=== PATIENT | female | born 1940 | race Caucasian/White ===

== ENCOUNTER 2018-01-02 13:25 | Emergency (ER) | payer MEDICARE ==
[2018-01-02] MEDS ORDERED: 0.9 % SODIUM CHLORIDE 1,000 ML BAG IV ONE (13:38)
--- NOTE | 2018-01-02 13:41 | Emergency Department Record ---
History of Present Illness - General Chief Complaint: Abdominal Pain Stated Complaint: LOWER RT ABDOMINAL PAIN Time Seen by Provider: 01/02/18 13:37 Source: Patient Mode of Arrival: Ambulatory Limitations: No limitations - History of Present Illness Initial Comments: 77 yo female presents with abdominal pain. The pain is located in the right lower abdomen. It has been ongoing for one day. It gradually has increased. No fevers or chills. She feels tired with mild decrease in the appetite. No nausea, vomiting, diarrhea or dysuria. She did fall off a stool three weeks ago but she feels mostly improved. No rash. No abdominal surgery history. PCP is Dr Swanson. Her doctor did note hematuria a few weeks ago on the office urinalysis. MD Complaint: Abdominal pain Onset/Timin -: Days(s) (1) Location: Other Radiation: RLQ Migration to: No migration Severity: Mild Consistency: Constant Improves With: Nothing Worsens With: Nothing Associated Symptoms: Denies other symptoms - Related Data Allergies Allergy/AdvReac Type Severity Reaction Status Date / Time No Known Drug Intolerances Allergy Unknown no known Verified 01/02/18 13:39 allergies Travel Screening - Travel/Exposure Within Last 30 Days Have you traveled within the last 30 days?: No Review of Systems Constitutional: Reports: Malaise. Denies: Chills, Fever Eyes: Denies: Eye discharge ENT: Denies: Congestion, Throat pain Respiratory: Denies: Cough, Dyspnea Cardiovascular: Denies: Chest pain, Syncope Endocrine: Denies: Fatigue, Polydipsia, Polyuria Gastrointestinal: Reports: As per HPI, Abdominal pain. Denies: Constipation, Diarrhea, Hematemesis, Hematochezia, Nausea, Vomiting Genitourinary: Denies: Dysuria, Urgency Musculoskeletal: Denies: Arthralgia, Back pain, Joint swelling, Myalgia Skin: Denies: Bruising, Change in color, Rash Neurological: Denies: Headache, Numbness, Weakness Psychiatric: Denies: Anxiety Hematological/Lymphatic: Denies: Easy bleeding, Easy bruising, Swollen glands Physical Exam - General General Appearance: Alert, Oriented x3, Cooperative, No acute distress Limitations: No limitations - Head Head exam: Atraumatic, Normal inspection - Eye Eye exam: Normal appearance. negative: Conjunctival injection, Scleral icterus - ENT ENT exam: Normal exam, Mucous membranes moist Ear exam: Normal external inspection Nasal Exam: Normal inspection Mouth exam: Normal external inspection Teeth exam: Normal inspection - Neck Neck exam: Normal inspection, Full ROM. negative: Tenderness - Respiratory Respiratory exam: Normal lung sounds bilaterally. negative: Respiratory distress - Cardiovascular Cardiovascular Exam: Regular rate, Normal rhythm, Normal heart sounds - GI/Abdominal GI/Abdominal exam: Soft, Tenderness (mild tenderness in the RLQ, very soft abdomen. No rebound or guarding.). negative: Distended, Guarding, Rebound, Rigid - Rectal Rectal exam: Deferred - exam: Deferred - Extremities Extremities exam: Normal inspection, Full ROM, Normal capillary refill. negative: Tenderness - Back Back exam: Denies: CVA tenderness (R), CVA tenderness (L) - Neurological Neurological exam: Alert, Oriented X3 - Psychiatric Psychiatric exam: Normal affect, Normal mood - Skin Skin exam: Dry, Intact, Normal color, Warm Course Vital Signs 01/02/18 13:32 Temperature 97.5 F L Pulse Rate 70 Respiratory 20 Rate Blood Pressure 146/74 Pulse Ox 97 - Reevaluation(s) Reevaluation #1: 01/02/18 14:49 The CBC was normal The GFR is 46 and CR above her baseline at 1.2 CT made oral only. No IV. 01/02/18 14:50 Few RBC's noted in the Urine. No infection 01/02/18 15:[address] scan was reviewed. No bladder or ureteral stone. Mild HN and HU without any stone visible. She has an 8mm intra renal stone. Recommend follow up ureterography. Appendix is normal. 01/02/18 16:27 Appointment was made at 4pm tomorrow for with Dr Bailon in the urology specialty clinic Medical Decision Making - Lab Data Result diagrams: 01/02/18 13:47 01/02/18 13:47 Disposition Disposition: Discharge Clinical Impression: Right flank discomfort Hematuria Qualifiers: Hematuria type: unspecified type Qualified Code(s): R31.9 - Hematuria, unspecified Disposition: Home, Self-Care Condition: (1) Good Instructions: Hematuria (ED), Abdominal Pain (ED) Additional Instructions: Call your family doctor. Call to schedule the next available appointment for a recheck. Return to ED if your symptoms worsen or if you have any new concerns, fever, vomiting or new concerns Review the final Emergency Record and test results with your doctor on follow up You have been referred to the [facility] for the stone in your kidney You have an appointment at 4pm with Dr Bailon Referrals: NAI BAILON M.D. [MEDICAL DOCTOR] - [facility] [place] [facility] [Provider Group] Forms: Patient Portal Access Quality - Quality Measures Quality Measures: N/A - Blood Pressure Screening Does Patient Have Any of the Following: No Blood Pressure Classification: Normal BP Reading Systolic Measurement: 119 Diastolic Measurement: 57 Screening for High Blood Pressure: < Normal BP, F/U Not Required > [G8783]
[2018-01-02 14:00] LABS: URINE APPEARANCE CLEAR; URINE BILIRUBIN NEGATIVE (NEGATIVE); URINE BLOOD LARGE (NEGATIVE); URINE COLOR YELLOW; URINE GLUCOSE (UA) NEGATIVE (NEGATIVE); URINE KETONE NEGATIVE (NEGATIVE); URINE LEUKOCYTE ESTERASE TRACE (NEGATIVE); URINE NITRITE NEGATIVE (NEGATIVE); URINE PROTEIN NEGATIVE (NEGATIVE); URINE UROBILINOGEN 0.2 E.U./dL (0.20 - 1.00)
[2018-01-02 14:02] LABS: BASO % 0.3 % (0-6); EOS % 1.4 % (0-6); GRAN % 73.9 % (47-80); HEMATOCRIT 34.7 % (35.0-47.0); HEMOGLOBIN 10.9 gm/dl (11.6-16.0); LYMPH % 15.9 % (16-45); MEAN CELL VOLUME 92.3 fl (81-97); MEAN CORPUSCULAR HEMOGLOBIN 28.9 pg (27-33); MEAN CORPUSCULAR HGB CONC 31.4 g/dl (32-36); MEAN PLATELET VOLUME 8.6 fl (7.4-10.4); MONO % 8.5 % (0-9); PLATELET COUNT 286 K/uL (130-400); RED BLOOD COUNT 3.76 M/uL (3.80-5.40); RED CELL DISTRIBUTION WIDTH 12.9 % (11.5-14.5); WHITE BLOOD COUNT W/O DIFF 6.6 K/uL (4.2-12.2)
[2018-01-02 14:12] LABS: URINE BACTERIA FEW; URINE RBC 16 - 25 (NONE SEEN); URINE WBC 0 - 2 (0-2/hpf)
[2018-01-02 14:13] LABS: URINE MUCUS LIGHT
[2018-01-02 14:14] LABS: BILIRUBIN,TOTAL 0.9 mg/dL (0.2-1.0); CREATININE 1.2 mg/dL (0.5-0.9)
[2018-01-02 14:15] LABS: TOTAL PROTEIN 6.5 g/dL (6.6-8.7)
[2018-01-02 14:20] LABS: ALB/GLOB RATIO 1.8 (1.1-1.8); ALBUMIN 4.2 g/dL (4.0-5.0)
[2018-01-02] MEDS ORDERED: ACETAMINOPHEN 500 MG TABLET PO ONE (16:30)
--- NOTE | 2018-01-03 07:59 | CT SCAN REPORT ---
EXAM: EMERGENCY CT OF THE ABDOMEN AND PELVIS WITHOUT CONTRAST HISTORY: RIGHT LOWER QUADRANT PAIN. TECHNIQUE: Axial CT scan of the abdomen and pelvis was performed with oral contrast, but without IV contrast at the referring physician's request. Comparison: No prior CT abdomen or pelvis. FINDINGS: No calcified gallstones are seen within the gallbladder. There is some malrotation in the right kidney with its long axis in a somewhat oblique AP direction rather than the more typical craniocaudal direction. There does appear to be some mild hydronephrosis of the right kidney and there is a calculus approximately 8 mm in size within the anteromedial aspect of the left kidney, but this appears to be within the intrarenal collecting system rather than in the UPJ itself and so do not appear to be causing obstruction currently. Compared to the left side the right ureter does appear mildly dilated, but no definite ureteral calculus seen on either side and no bladder calculus evident. Evaluation of the viscera is very limited without IV contrast. Given this limitation, no definite hepatic, splenic, adrenal, pancreatic, or renal mass identified. Mild diverticulosis in the sigmoid colon, but no diverticulitis evident. There is a very redundant colon. Thick walled appearance of portions of the colon is nonspecific although presumably just due to incomplete distention. No appendicitis identified. No free intraperitoneal air or free intraperitoneal fluid identified. Spurring in the spine. IMPRESSION: 1. 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 HYDRONEPHROSIS IN THE RIGHT KIDNEY WITH AN APPROXIMATELY 8 MM CALCULUS IN THE LOWER POLE. MILD HYDROURETER WELL ON THE RIGHT, BUT NO ACTUAL URETERAL CALCULUS SEEN ON THE RIGHT AND NO BLADDER CALCULUS EVIDENT. IF SYMPTOMS PERSIST , A FOLLOW-UP CT UROGRAPHY WOULD BE SUGGESTED FOR FURTHER EVALUATION. 2. CARDIOMEGALY. 3. NO APPENDICITIS EVIDENT. NO FREE AIR OR FREE FLUID EVIDENT. 4. MILD DIVERTICULOSIS SIGMOID COLON, BUT NO DIVERTICULITIS EVIDENT. JOB NUMBER: [id number] [facility]
== END 2018-01-02 16:44 | disposition home or self-care (01) ==
LOC: ER 13:25
DX: N20.0 Calculus of kidney (principal); R10.31 Right lower quadrant pain; R53.83 Other fatigue; R35.0 Frequency of micturition; R31.29 Other microscopic hematuria
CPT/HCPCS: 74176; 80053; 81001; 83690; 85025; 96360; 96361; 99284; J7030

== ENCOUNTER 2018-01-17 10:38 | Emergency (ER) | payer MEDICARE ==
[2018-01-17] MEDS ORDERED: 0.9 % SODIUM CHLORIDE 1000ML 1,000 ML IV PRN (11:04)
[2018-01-17] MEDS ORDERED: MAGNESIUM SULFATE 16 MEQ in 0.9 % SODIUM CHLORIDE 100ML 100 ML IV ONE (11:04)
--- NOTE | 2018-01-17 11:13 | Emergency Department Record ---
History of Present Illness - General Chief complaint: Fatigue and Weakness Stated complaint: in a daze, weakness Time Seen by Provider: 01/17/18 11:03 Source: Patient, Family () Mode of Arrival: Ambulatory Limitations: No limitations - History of Present Illness Initial comments: Pt relates waking this AM and not feeling herself. "I was in a fog". No CP or NENITA, no ROWE or focal weakness. No recent illness, fever, nausea, vomiting. No hx DM. No change in speech or motor. states ove rthe past two weeks she has not had energy. Recent dx with large right side renal stone and need lithotripsy. No pain from staone at present. In ED feeling "some better". Hx of Afib on meds and anticoagualtion and baby asprin. MD Complaint: Lack of energy Onset/Timin -: Days(s) Severity: Mild, Moderate Severity scale (1-10): 1 Quality: Aching Consistency: Constant Improves with: None Worsens with: None - [place] Coma Scale Eye Response: (4) Open spontaneously Motor Response: (6) Obeys commands Verbal Response: (5) Oriented [place] Total: 15 - Related Data Allergies Allergy/AdvReac Type Severity Reaction Status Date / Time No Known Drug Intolerances Allergy Unknown no known Verified 01/17/18 10:51 allergies Travel Screening - Travel/Exposure Within Last 30 Days Have you traveled within the last 30 days?: No - Travel/Exposure Within Last Year Have you traveled outside the [place] in the last year?: No - Additonal Travel Details Have you been exposed to anyone with a communicable illness?: No - Travel Symptoms Symptom Screening: None Review of Systems Constitutional: Reports: Malaise. Denies: Chills, Fever, Night sweats Eyes: Denies: Photophobia, Vision change ENT: Denies: Congestion Respiratory: Denies: Cough, Dyspnea, Wheezes Cardiovascular: Denies: Chest pain, Dyspnea on exertion, Palpitations, Syncope Endocrine: Reports: Fatigue Gastrointestinal: Denies: Abdominal pain, Constipation, Nausea, Vomiting Musculoskeletal: Denies: Arthralgia, Back pain Skin: Denies: Bruising, Change in color Neurological: Reports: Weakness. Denies: Abnormal gait, Headache, Numbness, Tingling, Tremors Psychiatric: Denies: Anxiety, Auditory hallucinations, Depression Hematological/Lymphatic: Denies: Anemia Past Medical History - SOCIAL HISTORY Smoking Status: Never smoker Alcohol Use: None Drug Use: None - RESPIRATORY Hx Respiratory Disorders: No - CARDIOVASCULAR Hx Cardio Disorders: Yes Hx Hypertension: Yes Hx Irregular Heartbeat: Yes (A-fib) Comment:: high cholesterol - NEURO Hx Neuro Disorders: Yes Hx CVA: Yes - GI Hx GI Disorders: No - Hx Genitourinary Disorders: No - ENDOCRINE Hx Endocrine Disorders: Yes Hx Thyroid Disease: Yes - MUSCULOSKELETAL Hx Musculoskeletal Disorders: No - PSYCH Hx Psych Problems: No - HEMATOLOGY/ONCOLOGY Hx Hematology/Oncology Disorders: No Family Medical History Any Significant Family History?: Yes Physical Exam - General General Appearance: Alert, Oriented x3, Cooperative, No acute distress - Head Head exam: Atraumatic - Eye Eye exam: Normal appearance, PERRL, EOMI - ENT ENT exam: Mucous membranes moist, Normal external ear exam, Normal orophraynx, TM's normal bilaterally - Neck Neck exam: Normal inspection, Full ROM. negative: Lymphadenopathy, Tenderness, Thyromegaly - Respiratory Respiratory exam: Normal lung sounds bilaterally. negative: Rhonchi, Wheezes - Cardiovascular Cardiovascular Exam: Regular rate, Normal rhythm, Normal heart sounds (frequest PVCs on monitor. ) Peripheral Pulses: 2+: Radial (R), Radial (L) - GI/Abdominal GI/Abdominal exam: Soft, Normal bowel sounds. negative: Guarding, Hypoactive bowel sounds, Tenderness - exam: Deferred - Extremities Extremities exam: Full ROM, Normal capillary refill. negative: Calf tenderness , Joint swelling - Back Back exam: Reports: Normal inspection. Denies: CVA tenderness (R), CVA tenderness (L), Paraspinal tenderness - Neurological Neurological exam: Alert, CN II-XII intact, Normal gait, Oriented X3. negative : Motor sensory deficit - Psychiatric Psychiatric exam: Normal affect, Normal mood. negative: Flat affect - Skin Skin exam: Normal color. negative: Rash Course Vital Signs 01/17/18 10:43 Temperature 98.2 F Pulse Rate 62 Respiratory 18 Rate Blood Pressure 164/77 Pulse Ox 97 - Reevaluation(s) Reevaluation #1: 01/17/18 13:41 Pt resting comfortable. CTA chest without PE. Noted lesion in liver and pancrease. Discussed with PMD Dr. Swanson by phone. He is aware of symptoms today and results of testing. Will follow in office for outpatient eval of liver and panc. Pt given lunch and then will walk in ED to see how she is feeling. Interval Trop at 2PM. Await results Reevaluation #2: 01/17/18 14:31 Repeat trop neg. Ate lunch and up walking in ED. Feeling better. Follow up with Dr. Swanson as discussed. Return as needed. Procedures - EKG Initial Date: 01/17/18 Time: 11:18 EKG: Abnormal EKG EKG Detail: SR 60, RBBB Medical Decision Making - Lab Data Result diagrams: 01/17/18 11:10 01/17/18 11:10 Disposition Disposition: Discharge Clinical Impression: Weakness Disposition: Home, Self-Care Condition: (2) Stable Instructions: Fatigue (ED) Additional Instructions: Rest, continue meds, follow up with Dr. Swanson in the office 2-3 days. Forms: Patient Portal Access Time of Disposition: 14:38 Quality - Quality Measures Quality Measures: N/A - Blood Pressure Screening Does Patient Have Any of the Following: No Blood Pressure Classification: Pre-Hypertensive BP Reading Systolic Measurement: 120 Diastolic Measurement: 59 Screening for High Blood Pressure: < Pre-Hypertensive BP, F/U Documented > [ G8950] Pre-Hypertensive Follow-up Interventions: Follow-up with rescreen every year.
[2018-01-17 11:14] LABS: BASO % 0.4 % (0-6); EOS % 3.1 % (0-6); GRAN % 66.5 % (47-80); HEMATOCRIT 35.8 % (35.0-47.0); HEMOGLOBIN 11.4 gm/dl (11.6-16.0); LYMPH % 20.6 % (16-45); MEAN CELL VOLUME 91.8 fl (81-97); MEAN CORPUSCULAR HEMOGLOBIN 29.2 pg (27-33); MEAN CORPUSCULAR HGB CONC 31.8 g/dl (32-36); MEAN PLATELET VOLUME 8.7 fl (7.4-10.4); MONO % 9.4 % (0-9); PLATELET COUNT 247 K/uL (130-400); RED CELL DISTRIBUTION WIDTH 12.6 % (11.5-14.5); WHITE BLOOD COUNT W/O DIFF 4.8 K/uL (4.2-12.2)
[2018-01-17 11:25] LABS: BLOOD UREA NITROGEN 25 mg/dL (8-23); CREATININE 0.8 mg/dL (0.5-0.9); EST GLOMERULAR FILTRATION RATE > 60 mL/min
[2018-01-17 11:26] LABS: TOTAL PROTEIN 6.6 g/dL (6.6-8.7)
[2018-01-17 11:28] LABS: GLUCOSE,RANDOM 112 mg/dL (74-109)
[2018-01-17 11:31] LABS: ALB/GLOB RATIO 1.9 (1.1-1.8); ALBUMIN 4.3 g/dL (4.0-5.0); ALKALINE PHOSPHATASE 53 U/L (35-104); ALT/SGPT 11 U/L (<33); AST/SGOT 19 U/L (10.0-35.0)
[2018-01-17 11:42] LABS: THYROID STIMULATING HORMONE 1.38 uIU/mL (0.270-4.20)
--- NOTE | 2018-01-18 10:54 | CT ANGIOGRAM REPORT ---
EXAM: CTA OF THE CHEST WITH CONTRAST HISTORY: DIFFICULTY IN BREATHING. TECHNIQUE: CTA of the chest was performed after intravenous administration of 80 ml of Omnipaque 350 contrast material. Sagittal and coronal MIP images were performed on an independent workstation. FINDINGS: The mediastinal vasculature enhances normally. No mass or filling defect to suggest pulmonary embolism. The heart and pericardium appears normal. No mediastinal or hilar lymphadenopathy. No infiltrate or pleural effusion. The visualized upper abdominal structures demonstrate an arterial enhancing lesion in the right lobe of the liver. This is intermittent lesion. There is a low density lesion in the pancreatic body measuring 12 mm. This should be further evaluated on a dedicated CT of the abdomen and pelvis. The adrenal glands and kidneys appear normal. IMPRESSION: 1. NO CTA FINDINGS SUGGESTIVE OF PULMONARY EMBOLISM. 2. ILL DEFINED HYPERVASCULAR LESION IN THE RIGHT LOBE OF THE LIVER. 12 MM LOW DENSITY LESION IN THE BODY OF THE PANCREAS. FURTHER EVALUATION WITH CT OR MRI IS RECOMMENDED. 3. NO INFILTRATE OR PLEURAL EFFUSION. JOB NUMBER: [id number] [facility]
== END 2018-01-17 14:56 | disposition home or self-care (01) ==
LOC: ER 10:38
DX: R53.1 Weakness (principal); R06.00 Dyspnea, unspecified; R79.89 Other specified abnormal findings of blood chemistry; K86.9 Disease of pancreas, unspecified; I10 Essential (primary) hypertension; I48.91 Unspecified atrial fibrillation
CPT/HCPCS: 36416; 71275; 80053; 82948; 84443; 84484; 85025; 85379; 93005; 93010; 96361; 96374; 99284